=== PATIENT | male | born 1975 | race Hispanic/Latino ===

== ENCOUNTER 2017-10-19 14:21 | Emergency (ER) | payer SELFPAY ==
[~2017-10-19] VITALS: Ht 170.2 cm; Wt 95.6 kg
[2017-10-19] MEDS ORDERED: DOXYCYC MONO100 M2 PO (15:44)
[2017-10-19] MEDS ORDERED: MUPIROCIN2 % EX (15:44)
[2017-10-19 15:52] VITALS: BP 143/88
== END 2017-10-19 15:56 | disposition home or self-care (01) | DRG 730 ==
LOC: ED 14:21
DX: S31.21XA Laceration without foreign body of penis, initial encounter (principal); E11.9 Type 2 diabetes mellitus without complications; X58.XXXA Exposure to other specified factors, initial encounter

== ENCOUNTER 2018-02-05 21:20 | Emergency (ER) | payer SELFPAY ==
[~2018-02-05] VITALS: Ht 170.2 cm; Wt 90.2 kg
[~2018-02-05 21:20] MED LIST: DOXYCYC MONO100 M2 PO; MUPIROCIN2 % EX
[2018-02-05] MEDS ORDERED: CIPROFLOXACN500 MG PO (21:38)
[2018-02-05] MEDS ORDERED: PERCOCET 5/325M1 TAB PO (21:38)
[2018-02-05 21:53] VITALS: BP 144/92
== END 2018-02-05 21:55 | disposition home or self-care (01) | DRG 153 ==
LOC: ED 21:20
DX: H66.93 Otitis media, unspecified, bilateral (principal)

== ENCOUNTER 2020-10-11 19:55 | Emergency (ER) | payer SELFPAY ==
[~2020-10-11] VITALS: Ht 170.2 cm; Wt 82.0 kg
[~2020-10-11 19:55] MED LIST changes: +CIPROFLOXACN500 MG PO; +PERCOCET 5/325M1 TAB PO
[2020-10-11 20:54] LABS: HEMATOCRIT 44.2 % (39.0-50.0); HEMOGLOBIN 15.1 g/dl (14.0-18.0); IMMATURE GRANULOCYTES 0.2 % (0.0-5.0); MEAN CELL VOLUME 89.1 fL CALC (80.0-100.0); MEAN CORPUSCULAR HGB 30.4 pG CALC (26.0-32.0); MEAN CORPUSCULAR HGB CONC 34.2 g/dL CAL (32.0-36.0); NEUT# 3.22 thou/uL (1.82-7.42); RED BLOOD COUNT 4.96 mill/uL (4.70-6.10); RED CELL DISTRI WIDTH 11.9 % (11.5-15.5)
[2020-10-11 20:56] LABS: URINE BILIRUBIN - DIPSTICK NEGATIVE (NEGATIVE); URINE BLOOD DIPSTICK NEGATIVE (NEGATIVE); URINE COLOR YELLOW; URINE GLUCOSE - DIPSTICK >=1000 mg/dL (NEGATIVE); URINE KETONE TRACE mg/dL (NEGATIVE); URINE LEUK ESTERASE NEGATIVE (NEGATIVE); URINE NITRITE - DIPSTICK NEGATIVE (Negative); URINE PH 6.5 (4.5-8.0); URINE PROTEIN - DIPSTICK NEGATIVE (NEG-TRACE)
[2020-10-11 21:11] LABS: ALBUMIN 4.9 g/dL (3.2-5.0); ALKALINE PHOSPHATASE 69 u/l (38-126); BUN 7 mg/dL (9-20); BUN/CREATININE RATIO 13 (12-20 (CALC)); CARBON DIOXIDE 26 mmol/l (22-30); CHLORIDE 99 mmol/l (95-108); CREATININE 0.6 mg/dL (0.7-1.3); GFR > 60 ML/MIN (>=60 (CALC)); GFR FOR AFR.AMER. > 60 ML/MIN (>=60 (CALC)); SGOT/AST 22 u/l (17-59); TOTAL PROTEIN 8.2 g/dL (6.3-8.2)
[2020-10-11 21:12] LABS: ANION GAP 14 (6-22 (CALC)); BILIRUBIN, TOTAL 1.6 mg/dL (0.0-1.4); SODIUM 135 mmol/l (137-146)
[2020-10-11 21:23] LABS: MYOGLOBIN 31 ng/mL (0 - 121)
[2020-10-11] MEDS ORDERED: NAPROXEN500 MG PO (21:36)
[2020-10-11 21:50] VITALS: BP 147/85
== END 2020-10-11 21:50 | disposition home or self-care (01) | DRG 556 ==
LOC: ED 19:55
PROVIDERS: Emergency Medicine
DX: M79.10 Myalgia, unspecified site (principal); E11.65 Type 2 diabetes mellitus with hyperglycemia; T38.3X6A Underdosing of insulin and oral hypoglycemic [antidiabetic] drugs, initial encounter; Z91.128 Patient's intentional underdosing of medication regimen for other reason; Z20.822 Contact with and (suspected) exposure to COVID-19

== ENCOUNTER 2021-09-04 18:20 | Emergency (ER) | payer SELFPAY ==
[~2021-09-04] VITALS: Ht 170.2 cm; Wt 75.0 kg
[~2021-09-04 18:20] MED LIST changes: +NAPROXEN500 MG PO
[2021-09-04 20:42] LABS: HEMATOCRIT 45.2 % (39.0-50.0); HEMOGLOBIN 15.7 g/dl (14.0-18.0); IMMATURE GRANULOCYTES 0.2 % (0.0-5.0); MEAN CELL VOLUME 89.7 fL CALC (80.0-100.0); MEAN CORPUSCULAR HGB 31.2 pG CALC (26.0-32.0); MEAN CORPUSCULAR HGB CONC 34.7 g/dL CAL (32.0-36.0); NEUT# 2.72 thou/uL (1.82-7.42); RED BLOOD COUNT 5.04 mill/uL (4.70-6.10); RED CELL DISTRI WIDTH 11.7 % (11.5-15.5)
[2021-09-04 20:55] LABS: ALBUMIN 4.4 g/dL (3.2-5.0); ALKALINE PHOSPHATASE 61 u/l (38-126); AMYLASE 81 u/l (30-110); ANION GAP 11 (6-22 (CALC)); BUN 9 mg/dL (9-20); BUN/CREATININE RATIO 11 (12-20 (CALC)); CARBON DIOXIDE 29 mmol/l (22-30); CHLORIDE 104 mmol/l (95-108); CREATININE 0.9 mg/dL (0.7-1.3); GFR > 60 ML/MIN (>=60 (CALC)); GFR FOR AFR.AMER. > 60 ML/MIN (>=60 (CALC)); LIPASE 99 u/l (23-300); POTASSIUM 3.8 mmol/l (3.5-5.1); SGOT/AST 22 u/l (17-59); SODIUM 140 mmol/l (137-146); TOTAL PROTEIN 8.3 g/dL (6.3-8.2)
[2021-09-04 20:57] LABS: BILIRUBIN, TOTAL 0.7 mg/dL (0.0-1.4)
[2021-09-04 21:18] LABS: URINE BILIRUBIN - DIPSTICK NEGATIVE (NEGATIVE); URINE BLOOD DIPSTICK NEGATIVE (NEGATIVE); URINE COLOR YELLOW; URINE GLUCOSE - DIPSTICK NEGATIVE (NEGATIVE); URINE KETONE NEGATIVE (NEGATIVE); URINE LEUK ESTERASE NEGATIVE (NEGATIVE); URINE PROTEIN - DIPSTICK NEGATIVE (NEG-TRACE); URINE SPECIFIC GRAVITY >=1.030
[2021-09-04 21:21] LABS: URINE NITRITE - DIPSTICK NEGATIVE (Negative)
[2021-09-04] MEDS ORDERED: ZOFRAN4 MG/TAB PO (22:58)
[2021-09-04 23:17] VITALS: BP 113/66
== END 2021-09-04 23:15 | disposition home or self-care (01) | DRG 392 ==
LOC: ED 18:20
PROVIDERS: Emergency Medicine
DX: R10.9 Unspecified abdominal pain (principal); E11.9 Type 2 diabetes mellitus without complications; I10 Essential (primary) hypertension; F17.200 Nicotine dependence, unspecified, uncomplicated
CPT/HCPCS: Q9967